=== PATIENT | female | born 1985 | race Caucasian/White ===

== ENCOUNTER 2019-03-26 17:52 | Emergency (ER) | payer BC, OTHER ==
[~2019-03-26] VITALS: Ht 177.8 cm; Wt 74.8 kg
[2019-03-26] MEDS ORDERED: JUNEL FE 1-201 EACH PO (18:19)
[2019-03-26 18:30] LABS: URINE BILIRUBIN NEGATIVE (Negative); URINE BLOOD 3+ (Negative); URINE CLARITY TURBID; URINE COLOR YELLOW; URINE GLUCOSE-RANDOM* NEGATIVE (Negative); URINE KETONES 2+ (Negative); URINE LEUKOCYTES-REFLEX NEGATIVE (Negative); URINE NITRITE-REFLEX NEGATIVE (Negative); URINE PROTEIN (DIPSTICK) TRACE (Negative); URINE SPECIFIC GRAVITY >= 1.030 (1.005-1.035)
[2019-03-26 18:52] LABS: ABSOLUTE NEUTROPHILS 12.9 thou/uL (1.4-8.2); BASOPHILS 0.3 % (0.0-2.0); EOSINOPHILS 0.1 % (0.0-3.0); HEMATOCRIT 43.8 % (37.0-47.0); HEMOGLOBIN 14.3 gm/dL (12.0-15.0); LYMPHOCYTES 12.3 % (24.0-44.0); MCH 27.8 pg (26.0-34.0); MCHC 32.8 g/dL (28.0-37.0); MCV 84.8 fL (80.0-100.0); MONOCYTES 4.8 % (1.0-8.0); PLATELET COUNT 158 thou/uL (150-400); POLYS 82.5 % (36.0-66.0); RBC 5.16 mil/uL (4.20-5.00); WBC 15.7 thou/uL (4.0-11.0)
[2019-03-26 18:53] LABS: SQUAMOUS 0-3 Few /LPF (0-3)
[2019-03-26 18:54] LABS: AMORPHOUS URATES Many /LPF (None Seen); BACTERIA-REFLEX 1-9 Few /HPF (None Seen); CASTS None Seen /LPF (None Seen); URINE WBC-REFLEX None Seen /HPF (0-5)
[2019-03-26 19:01] LABS: CALCIUM 9.7 mg/dL (8.5-10.1); CREATININE 1.1 mg/dL (0.6-1.0); POTASSIUM 4.3 mmol/L (3.5-5.1)
[2019-03-26 19:07] LABS: ALBUMIN 4.6 g/dL (3.4-5.0); DIRECT BILIRUBIN 0.1 mg/dL (<0.1-0.2); TOTAL BILIRUBIN 0.6 mg/dL (<0.1-1.0); TOTAL PROTEIN 8.1 g/dL (6.4-8.2)
[2019-03-26] MEDS ORDERED: NORCO 5-325 TA1 EAC1 PO (19:58)
[2019-03-26] MEDS ORDERED: ZOFRAN ODT4 MG PO (19:58)
[2019-03-26] MEDS ORDERED: FLOMAX0.4 MG PO (19:58)
[2019-03-26 20:26] VITALS: BP 127/73
== END 2019-03-26 20:30 | disposition home or self-care (01) ==
LOC: ER 17:52
PROVIDERS: Emergency Medicine
DX: N20.0 Calculus of kidney (principal)